=== PATIENT | female | born 1955 | race Two or more races ===

== ENCOUNTER 2019-08-16 01:05 | Emergency (ER) | payer OTHER ==
[~2019-08-16] VITALS: Ht 165.1 cm; Wt 72.6 kg
[2019-08-16] MEDS ORDERED: MORPHINE SULFATE INJ 2 MG/ML DISP.SYRIN IV ONE (01:30)
[2019-08-16] MEDS ORDERED: IV NS 0.9% 500 ML BAG IV ONE (01:30)
[2019-08-16] MEDS ORDERED: ONDANSETRON HCL/PF 4 MG/2 ML VIAL IVP ONE (01:30)
--- NOTE | 2019-08-16 01:35 | NUR ---
Received patient from home, ambulatory, A/O x4, with complaint of abdominal pain. Per patient she took 1 tab Magnesium for abdominal pain as she googled for it, no relief noted. Place on bed comfortably. Initiated IVF as ordered.
[2019-08-16 01:37] LABS: BASOPHILS # (AUTO) 0.1 /CMM (0.0-0.2); BASOPHILS % (AUTO) 0.5 % (0.0-2.0); EOSINOPHILS % (AUTO) 0.8 % (0.0-6.0); HEMATOCRIT 38 % (33-45); HEMOGLOBIN 12.7 g/dL (11.5-14.8); LYMPHOCYTES # (AUTO) 1.1 /CMM (0.8-4.8); LYMPHOCYTES % (AUTO) 10.1 % (20.0-44.0); MEAN CORPUSCULAR HGB CONC 34 g/dl (31.0-36.0); MEAN CORPUSCULAR VOLUME 88 fL (82-100); MONOCYTES # (AUTO) 0.6 /CMM (0.1-1.30); MONOCYTES % (AUTO) 5.4 % (2.0-12.0); NEUTROPHILS # (AUTO) 8.8 /CMM (1.8-8.9); NEUTROPHILS % (AUTO) 83.2 % (43.0-81.0); PLATELET COUNT (AUTO) 271 /CMM (150-450); RED BLOOD CELL COUNT(AUTO) 4.31 MIL/uL (4.0-5.2); WHITE BLOOD COUNT (AUTO) 10.6 K/uL (4.3-11.0)
--- NOTE | 2019-08-16 01:37 | NUR ---
INFORMED PATIENT OF THE MEDICATIONS SHE WILL BE TAKING ORDERED. PER PATIENT SHE DOES NOT WANT TO TAKE MORPHINE, PREFFERED IBUPROFEN. WILL NOTIFY MD. PATIENT REFUSED TO TAKE THE ZOFRAN RIGHT NOW, PER PATIENT NAUSEA IS MANAGEABLE AND WANT TO OBSERVE FOR NOW.
[2019-08-16] MEDS ORDERED: ONDANSETRON HCL/PF 4 MG/2 ML VIAL ONE (01:40)
--- NOTE | 2019-08-16 01:42 | NUR ---
PATIENT VERBALIZED SHE WANT TO TAKE ZOFRAN NOW. ADMINISTERED ORDERED. TRANSPORTED TO RADIOLOGY FOR CT OF ABDOMEN, ACCOMPANIED BY THE RADIOLOGY STAFF.
[2019-08-16 01:44] LABS: CREATININE 0.7 mg/dL (0.6-1.3)
--- NOTE | 2019-08-16 01:54 | NUR ---
Patient backed from radiology.
[2019-08-16 02:03] LABS: APPEARANCE,URINE Slightly Cloudy (CLEAR); BILIRUBIN,URINE Negative (NEGATIVE); BLOOD, URINE Trace-intact Ery/uL (NEGATIVE); COLOR,URINE Yellow (YELLOW); KETONES,URINE Negative (NEGATIVE); LEUKOCYTE ESTERASE ,URINE Small (NEGATIVE); NITRITE, URINE Negative (NEGATIVE); PROTEIN,URINE Negative (NEGATIVE); UGLUCOSE Negative (NEGATIVE); UROBILINOGEN,URINE 0.2 EU/dL (0.2)
[2019-08-16] MEDS ORDERED: IBUPROFEN 600 MG TABLET PO ONE ×2 (02:08→02:30)
[2019-08-16 02:14] LABS: BACTERIA,URINE Few /HPF (None Seen); SQUAMOUS EPITHELIAL CELL,UR Moderate /HPF (None Seen); WBC,URINE 51-80 /HPF (0-3)
[2019-08-16] MEDS ORDERED: MORPHINE SULFATE INJ 4 MG/ML DISP.SYRIN ONE (02:21)
--- NOTE | 2019-08-16 02:28 | NUR ---
at [facility] to give instructions to patient. Reinforced discharge instructions and health teachings given to patient, verbalized understanding. All inquiries answered with satisfaction. Awaiting for the to chart picker the patient at this time.
--- NOTE | 2019-08-16 02:46 | NUR ---
at bedside to pickle processor the patient. Peripheral IV line discontinue, IV catheter intact and complete. Patient ambulatory, left the facility with the at this time.
[2019-08-16 02:47] VITALS: BP 129/85
== END 2019-08-16 02:47 | disposition home or self-care (01) ==
LOC: ER 01:05
DX: R10.31 Right lower quadrant pain (principal)
CPT/HCPCS: 36415; 74176; 80048; 81001; 85025; 87086; 96374; 96375; 99284; J2270; J2405; J7030 ×2; 81000-TC

== ENCOUNTER 2025-02-16 09:19 | Inpatient (IN) | payer MEDICARE, OTHER ==
[~2025-02-16] VITALS: Ht 157.5 cm; Wt 68.9 kg
[2025-02-16] MEDS: MORPHINE SULFATE INJ 2 MG/ML DISP.SYRIN IV ONE (09:30)
[2025-02-16] MEDS: ONDANSETRON HCL/PF 4 MG/2 ML VIAL IVP ONE (09:30)
[2025-02-16] MEDS ORDERED: ONDANSETRON HCL/PF 4 MG/2 ML VIAL ONE (09:32)
[2025-02-16] MEDS ORDERED: MORPHINE SULFATE INJ 4 MG/ML DISP.SYRIN ONE (09:33)
[2025-02-16] MEDS ORDERED: KETAMINE HCL (500MG/10ML) 50 MG/ML VIAL ONE (10:19)
[2025-02-16] MEDS ORDERED: PROPOFOL 20 ML IV ONE (10:19)
[2025-02-16 10:26] LABS: BASOPHILS % (AUTO) 0.5 % (0.0-2.0); EOSINOPHILS # (AUTO) 0.1 K/uL (0.0-0.7); EOSINOPHILS % (AUTO) 1.1 % (0.0-6.0); HEMATOCRIT 40 % (33-45); LYMPHOCYTES # (AUTO) 2.1 K/uL (0.8-4.8); LYMPHOCYTES % (AUTO) 25.6 % (20.0-44.0); MEAN CORPUSCULAR HEMOGLOBIN 29 PG (26.0-33.0); MEAN CORPUSCULAR HGB CONC 33 g/dl (31.0-36.0); MEAN CORPUSCULAR VOLUME 88 fL (82-100); MONOCYTES # (AUTO) 0.4 K/uL (0.1-1.30); MONOCYTES % (AUTO) 5.1 % (2.0-12.0); NEUTROPHILS # (AUTO) 5.5 K/uL (1.8-8.9); NEUTROPHILS % (AUTO) 67.7 % (43.0-81.0); PLATELET COUNT (AUTO) 340 K/uL (150-450); RED CELL DISTRIBUTION WIDTH 14.2 % (11.5-15.0); WHITE BLOOD COUNT (AUTO) 8.2 K/uL (4.3-11.0)
[2025-02-16] MEDS: PROPOFOL 200 MG/20 ML VIAL IV ONE ×2 (10:35→10:39)
[2025-02-16 10:36] LABS: CALCIUM, SERUM 9.3 mg/dL (8.5-10.1); CREATININE 0.9 mg/dL (0.6-1.3); POTASSIUM 3.7 mmol/L (3.5-5.1)
[2025-02-16] MEDS: KETAMINE HCL (500MG/10ML) 50 MG/ML VIAL IV ONE (10:36)
[2025-02-16 10:48] LABS: INR 0.97 (0.91-1.10); PARTIAL THROMBOPLASTIN TIME 23.9 SEC (24.3-34.3); PROTHROMBIN TIME 10.3 SECS (9.2-11.1)
[2025-02-16] MEDS ORDERED: Z GUARD REMEDY 4 OZ OINT TP PRN (11:30)
[2025-02-16] MEDS ORDERED: MAG HYDROX/AL HYDROX/SIMETH 30 ML UDC PO PRN (11:30)
[2025-02-16] MEDS ORDERED: ONDANSETRON HCL/PF 4 MG/2 ML VIAL IVP PRN (11:30)
[2025-02-16] MEDS ORDERED: MAGNESIUM HYDROXIDE 30 ML UDC PO PRN (11:30)
[2025-02-16 12:00] VITALS: BP 143/83; TEMP 98.1; O2SAT 98
[2025-02-16] MEDS ORDERED: OXYB-58 PO (14:00)
[2025-02-16] MEDS ORDERED: PROP20TA19 PO (14:00)
[2025-02-16] MEDS ORDERED: CLON0.5T4 PO (14:00)
[2025-02-16] MEDS ORDERED: SERT25TA5 PO (14:00)
[2025-02-16] MEDS ORDERED: OMEP40CA21 PO (14:00)
[2025-02-16] MEDS ORDERED: ROSU20TA32 PO (14:00)
[2025-02-16] MEDS ORDERED: FENTANYL PF 100MCG/2ML AMPUL ONE (18:04)
[2025-02-16 20:00] VITALS: BP 131/85; TEMP 98.8; O2SAT 98
[2025-02-16] MEDS: ACETAMINOPHEN 325 MG TABLET PO PRN (20:25)
[2025-02-16 22:00] VITALS: BP 131/85; TEMP 98.8; O2SAT 98
[2025-02-17 06:35] LABS: BASOPHILS % (AUTO) 0.2 % (0.0-2.0); EOSINOPHILS % (AUTO) 0.5 % (0.0-6.0); HEMATOCRIT 37 % (33-45); HEMOGLOBIN 12.2 g/dL (11.5-14.8); LYMPHOCYTES # (AUTO) 1.5 K/uL (0.8-4.8); LYMPHOCYTES % (AUTO) 19.8 % (20.0-44.0); MEAN CORPUSCULAR HEMOGLOBIN 29 PG (26.0-33.0); MEAN CORPUSCULAR HGB CONC 33 g/dl (31.0-36.0); MEAN CORPUSCULAR VOLUME 87 fL (82-100); MONOCYTES # (AUTO) 0.8 K/uL (0.1-1.30); MONOCYTES % (AUTO) 10.1 % (2.0-12.0); NEUTROPHILS # (AUTO) 5.3 K/uL (1.8-8.9); NEUTROPHILS % (AUTO) 69.4 % (43.0-81.0); PLATELET COUNT (AUTO) 261 K/uL (150-450); RED BLOOD CELL COUNT(AUTO) 4.22 MIL/uL (4.0-5.2); RED CELL DISTRIBUTION WIDTH 14.1 % (11.5-15.0); WHITE BLOOD COUNT (AUTO) 7.6 K/uL (4.3-11.0)
[2025-02-17 07:17] LABS: CALCIUM, SERUM 9.1 mg/dL (8.5-10.1); CREATININE 0.7 mg/dL (0.6-1.3); MAGNESIUM 2.2 mg/dL (1.8-2.4); PHOSPHORUS 2.5 mg/dL (2.5-4.9); POTASSIUM 3.7 mmol/L (3.5-5.1)
[2025-02-17] MEDS ORDERED: clonazePAM 0.5 MG TABLET PO PRN (09:30)
[2025-02-17 09:46] VITALS: BP 104/69; TEMP 97.9; O2SAT 97
[2025-02-17] MEDS ORDERED: PROPRANOLOL HCL 10 MG TABLET PO PRN (10:00)
[2025-02-18] MEDS ORDERED: SERTRALINE HCL 25 MG TABLET PO SCH (09:00)
[2025-02-18] MEDS ORDERED: OXYBUTYNIN CHLORIDE ER 5 MG TAB PO SCH (09:00)
[2025-02-18] MEDS ORDERED: ATORVASTATIN 40 MG TABLET PO SCH (09:00)
[2025-02-18] MEDS ORDERED: PANTOPRAZOLE 40 MG TABLET.DR PO SCH (09:00)
== END 2025-02-17 11:53 | disposition home or self-care (01) | DRG 563 ==
LOC: ER 09:27 → MED 10:57
PROVIDERS: ADMIT Internal Medicine; ATTEND Internal Medicine
PROC: 0RSKXZZ Reposition Left Shoulder Joint, External Approach (ICD-10-PCS; principal; 2025-02-16 16:30)
DX: S42.252A Displaced fracture of greater tuberosity of left humerus, initial encounter for closed fracture (principal); E78.5 Hyperlipidemia, unspecified; I10 Essential (primary) hypertension; S00.81XA Abrasion of other part of head, initial encounter; K21.9 Gastro-esophageal reflux disease without esophagitis; W01.0XXA Fall on same level from slipping, tripping and stumbling without subsequent striking against object, initial encounter; Y93.9 Activity, unspecified; Y92.009 Unspecified place in unspecified non-institutional (private) residence as the place of occurrence of the external cause; F32.9 Major depressive disorder, single episode, unspecified
CPT/HCPCS: 36415; 70450-TC; 71045-TC; 73030-TC; 80048-TC; 83735-TC; 84100-TC; 85025-TC; 85730-TC; G0378; J2270; J2405; J2704; J3010; J3490; J7030; J7050

== ENCOUNTER 2025-02-25 10:05 | Emergency (ER) | payer MEDICARE, OTHER ==
[~2025-02-25] VITALS: Ht 160 cm; Wt 70.3 kg
[~2025-02-25 10:05] MED LIST: CLON0.5T4 PO; OMEP40CA21 PO; OXYB-58 PO; PROP20TA19 PO; ROSU20TA32 PO; SERT25TA5 PO
[2025-02-25 10:12] VITALS: BP 126/73; TEMP 98.3
[2025-02-25] MEDS ORDERED: HYDROCODONE/APAP 5/325MG TABLET ONE (10:45)
[2025-02-25] MEDS: HYDROCODONE/APAP 5/325MG TABLET PO ONE (10:51)
[2025-02-25] MEDS ORDERED: HYDR-4303 PO (11:34)
[2025-02-25] MEDS ORDERED: LIDO30AD10 TP (11:34)
[2025-02-25] MEDS ORDERED: CYCL5TAB PO (11:34)
[2025-02-25 11:45] VITALS: O2SAT 98
== END 2025-02-25 11:46 | disposition home or self-care (01) ==
LOC: ER 10:08
DX: S42.92XA Fracture of left shoulder girdle, part unspecified, initial encounter for closed fracture (principal); I10 Essential (primary) hypertension; E78.5 Hyperlipidemia, unspecified; Z60.2 Problems related to living alone; Z79.899 Other long term (current) drug therapy; W18.39XA Other fall on same level, initial encounter; Y93.89 Activity, other specified; Y92.89 Other specified places as the place of occurrence of the external cause; Y99.8 Other external cause status
CPT/HCPCS: 73030-TC